=== PATIENT | female | born 1970 | race Caucasian/White ===

== ENCOUNTER 2016-11-07 08:27 | Inpatient (IN) ==
[2016-11-05 17:26] LABS: Basophils # (Auto) 0 K/mcL (0.0-0.3); Basophils % (Auto) 0.3 % (0.0-2.0); Eosinophils # (Auto) 0.3 K/mcL (0.0-0.7); Eosinophils % (Auto) 2.4 % (0.0-7.0); Granulocytes % (Auto) 68.2 % (38.0-78.0); Lymphocytes # (Auto) 2.8 K/mcL (1.5-4.8); Lymphocytes % (Auto) 24.1 % (15.5-49.0); Mean Cell Volume 88.9 fL (80.0-100.0); Mean Corpuscular HGB Conc 32.3 g/dL (31.0-36.0); Mean Corpuscular Hemoglobin 28.7 pg (26.0-34.0); Monocytes # (Auto) 0.6 K/mcL (0.1-0.9); Platelet Count 364 K/mcL (140-440); RBC 4.89 M/mcL (4.00-5.20); Red Cell Distribution Width 13.3 % (11.5-14.5)
[2016-11-05 17:36] LABS: Blood Urea Nitrogen 20 mg/dl (6-20)
[2016-11-05 19:10] LABS: Appearance,Urine HAZY; Bilirubin,Urine NEG (NEG); Color,Urine YELLOW; Glucose,Urine (UA) NEGATIVE (NEG); Leukocyte Esterase,Urine NEG /uL (NEG); Nitrate,Urine NEG (NEG); Protein,Urine NEG (NEG); Specific Gravity,Urine 1.024 (1.000-1.035); Urine Blood NEG mg/dL (<0.03); Urobilinogen,Urine NEG (NEG)
[~2016-11-07 08:27] MED LIST: ACETAMINOPHEN 500 MG TABLET PO SCH; CELECOXIB 200 MG CAPSULE PO SCH; PREGABALIN 150 MG CAPSULE PO SCH; ceFAZolin 1 GM VIAL IV SCH; oxyCODONE 10 MG TAB.ER.12H PO SCH
[2016-11-07] MEDS ORDERED: KETOROLAC 30 MG, ROPIVACAINE HCL/PF 49.5 ML, EPINEPHrine 0.5 MG, 0.9 % SODIUM CHLORIDE ... IJ ONE (11:00)
[2016-11-07] MEDS ORDERED: fentaNYL 100 MCG/2 ML VIAL IV ONE (11:15)
[2016-11-07] MEDS ORDERED: PROPOFOL 200 MG/20 ML VIAL IV ONE (11:15)
[2016-11-07] MEDS ORDERED: LIDOCAINE HCL/PF 100 MG/5 ML SYRINGE IV ONE (11:15)
[2016-11-07] MEDS ORDERED: DEXAMETHASONE 10 MG/ML VIAL IV ONE (11:15)
[2016-11-07] MEDS ORDERED: MIDAZOLAM 5 MG/5 ML VIAL IV ONE (11:15)
[2016-11-07] MEDS ORDERED: TRANEXAMIC ACID 1,000 MG/10 ML VIAL IV ONE ×2 (11:15→14:26)
[2016-11-07] MEDS ORDERED: ONDANSETRON 4 MG/2 ML VIAL IV ONE (11:15)
[2016-11-07] MEDS ORDERED: GLYCOPYRROLATE 0.2 MG/ML VIAL IV ONE (11:15)
[2016-11-07] MEDS ORDERED: BUPIVACAINE 0.5% 50 ML VIAL IJ ONE (12:08)
[2016-11-07] MEDS ORDERED: ATROPINE SULFATE 0.4 MG/ML VIAL IV PRN (12:34)
[2016-11-07] MEDS ORDERED: FLUMAZENIL 0.1 MG/ML ML IV PRN (12:34)
[2016-11-07] MEDS ORDERED: MEPERIDINE 25 MG/ML SYRINGE IV PRN (12:34)
[2016-11-07] MEDS ORDERED: NALOXONE HCL 0.4 MG/ML VIAL IV PRN (12:34)
[2016-11-07] MEDS ORDERED: diphenhydrAMINE 50 MG/ML VIAL IV PRN (12:34)
[2016-11-07] MEDS ORDERED: METOPROLOL TARTRATE 5 MG/5 ML VIAL IV PRN (12:34)
[2016-11-07] MEDS ORDERED: BENZOCAINE/MENTHOL 1 LOZENGE PO PRN ×2 (12:34→14:26)
[2016-11-07] MEDS ORDERED: IPRATROPIUM/ALBUTEROL 3 ML AMPUL.NEB NEB PRN (12:34)
[2016-11-07] MEDS ORDERED: MEPERIDINE 50 MG/ML SYRINGE IM ONE (12:34)
[2016-11-07] MEDS ORDERED: ONDANSETRON 4 MG/2 ML VIAL IV PRN ×2 (12:34→14:26)
[2016-11-07] MEDS ORDERED: ePHEDrine 50 MG/ML AMPUL IV PRN (12:34)
[2016-11-07] MEDS ORDERED: PROMETHAZINE 25 MG/ML VIAL IM ONE (12:34)
[2016-11-07] MEDS ORDERED: PROMETHAZINE 25 MG/ML VIAL IV PRN (12:34)
[2016-11-07] MEDS ORDERED: METHOCARBAMOL 1,000 MG/10 ML VIAL IV PRN (12:34)
[2016-11-07] MEDS ORDERED: LACTATED RINGERS 1,000 ML IV SCH (12:45)
[2016-11-07] MEDS ORDERED: traMADol 50 MG TABLET PO PRN (12:58)
--- NOTE | 2016-11-07 13:00 | Brief Operative Note ---
Date of procedure: 11/07/16 Pre-op diagnosis: right knee djd 3 comp Post-op diagnosis: same Procedure: right tka Grafts/Implants: Yes Anesthesia: GETA Findings: right knee djd Complications: none Surgeon: James Contreras B And B Gang Worker: Gael Rose Estimated blood loss (cc): 20 Tourniquet Time (Minutes): 57 Specimens Removed/Pathology: none sent Condition: stable Disposition: PACU
[2016-11-07] MEDS: fentaNYL 100 MCG/2 ML VIAL IV PRN ×4 (13:14→13:25)
[2016-11-07] MEDS: HYDROmorphone 2 MG/ML SYRINGE IV PRN ×9 (13:30→18:06)
--- NOTE | 2016-11-07 13:51 | Operative Note ---
DATE OF OPERATION: 11/07/2016 PREOPERATIVE DIAGNOSIS: Right knee degenerative arthritis in all three compartments. POSTOPERATIVE DIAGNOSIS: Right knee degenerative arthritis in all three compartments. PROCEDURE: Right total knee arthroplasty using the ZAHEER robot. SURGEON: James Contreras MD PUTTY AND PATCH WORKER: Gael Rose PA-C ANESTHESIA: General LMA anesthesia. COMPLICATIONS: None. IMPLANTS: Cemented femur, cemented tibial baseplate with a 9 mm poly and 33 mm patellar button, all cemented components. ESTIMATED BLOOD LOSS: About 20 mL. DESCRIPTION OF PROCEDURE: The patient was brought to the operating room and put to sleep with general LMA anesthesia. Once asleep, the patient had the right leg sterilely prepped and draped in the usual sterile fashion. Once this was done, we confirmed this to be the operative site. The patient received preoperative antibiotics and tranexamic acid. We then placed two pins above and below the knee. We made our midline incision and placed the arrays, registered the center of hip rotation, and medial and lateral malleoli. Once done, we then performed exposure of the joint, placed intraarticular pins, registered the pins and then registered 30 points on the femur and tibia. Once completed, then retractors were placed. Prior to retractors being placed we did balance the knee through and extension at 15 degrees and at 90 degrees. Once these were recorded, we positioned the implants to balance the knee at 18 mm. This seemed to work very well. We did template both an 11 and a 9 insert. We then brought the robot in and the distal femoral cut was made, a posterior chamfer cut. We changed the blade and then made our anterior and posterior chamfer cuts and posterior and anterior cuts as well. The bony fragments were removed. We then brought the robot in and registered the arm once more and changed the blade and made our tibial cut. Once this was done, we removed the bony fragments, removed the remnants of the meniscus and removed osteophytes posteriorly. Once done, we then positioned the rotation of the tibial baseplate with the robot and the size per template. This was punched into place with the exact rotation and orientation that the robot had been pretemplated with. Once this was in place, we then placed the femur and trialed the 9 poly. This seemed to be very accurate with a negative 2 degrees of flexion contracture with about neutral alignment. It balanced both in flexion and extension very nicely, motion excellent. The patella tracked well. We then resurfaced the patella measuring 22 mm. This was cut to 14 mm and we placed a 33 mm patellar button. This was drilled into place and trialed. This tracked very well. All components were very stable, perfectly balanced. We irrigated thoroughly and cemented into place the above-mentioned sizes. Excess cement was removed and soft tissue injection was performed prior to inserting the implants. Once the implants were in we kept the knee at 45 degrees until the cement had dried, we deflated the tourniquet and controlled bleeding with the Bovie, reevaluated for any loose fragments or cement fragments and washed the knee once more with copious amounts of irrigation. The bone had been prepared prior to the implant with a CarboJet for deeper penetration of cement. We irrigated thoroughly and closed the mid vastus approach with #2 FiberWire and #2 double-armed Maxon. Skin was closed with 2-0 Vicryl and as an adhesive closure. The portals were closed. The pins were removed above and below the knee and these were closed with nylon stitches. The patient tolerated this well without complication. ALLEGRA:kaye Job ID: [id number] Doc ID: [id number] James Contreras MD
--- NOTE | 2016-11-07 14:00 | XRay Report ---
CLINICAL INFORMATION: Postsurgical follow-up TECHNIQUE: AP and lateral right knee COMPARISON: None. FINDINGS: Status post right total knee arthroplasty. Femoral and tibial complements are in anatomic positions. Soft tissue and intra-articular postsurgical gas IMPRESSION: Status post right total knee arthroplasty Interpreted and Authenticated by: Phill Mayberry 11/07/16
[2016-11-07] MEDS ORDERED: MAGNESIUM HYDROXIDE 30 ML ORAL.SUSP PO PRN (14:26)
[2016-11-07] MEDS ORDERED: BISACODYL 10 MG SUPP.RECT PR PRN (14:26)
[2016-11-07] MEDS ORDERED: ACETAMINOPHEN 325 MG TABLET PO PRN (14:26)
[2016-11-07] MEDS ORDERED: POLYETHYLENE GLYCOL 3350 17 GM PACKET PO PRN (14:26)
[2016-11-07] MEDS ORDERED: FLEETS ADULT ENEMA PR PRN (14:26)
[2016-11-07] MEDS: 0.45 % SODIUM CHLORIDE 1,000 ML IV SCH ×2 (15:04→23:32)
[2016-11-07] MEDS: FERROUS SULFATE 325 MG TABLET PO SCH (17:03)
[2016-11-07] MEDS: KETOROLAC 15 MG/ML VIAL IV SCH ×2 (17:17→23:18)
[2016-11-07] MEDS: ceFAZolin 1 GM VIAL IV SCH (19:10)
[2016-11-07] MEDS: DOCUSATE SODIUM 100 MG CAPSULE PO SCH (20:24)
[2016-11-07] MEDS: ASPIRIN 325 MG ENTERIC COATED TABLET PO SCH (20:24)
[2016-11-07] MEDS: 0.9 % SODIUM CHLORIDE 10 ML SYRINGE IV SCH (20:24)
[2016-11-07] MEDS ORDERED: DOCUSATE SODIUM 100 MG CAPSULE PO SCH (21:00)
[2016-11-07] MEDS ORDERED: SENNOSIDES 1 TABLET PO SCH (21:00)
[2016-11-07] MEDS ORDERED: TEMAZEPAM 15 MG CAPSULE PO PRN (21:00)
[2016-11-07] MEDS: HYDROcodone/APAP 10/325MG TABLET PO PRN ×2 (22:15→23:18)
[2016-11-08] MEDS: ceFAZolin 1 GM VIAL IV SCH (03:25)
[2016-11-08] MEDS: HYDROcodone/APAP 10/325MG TABLET PO PRN ×3 (03:25→11:11)
[2016-11-08] MEDS: 0.9 % SODIUM CHLORIDE 10 ML SYRINGE IV SCH ×3 (03:26→12:01)
[2016-11-08] MEDS: KETOROLAC 15 MG/ML VIAL IV SCH ×2 (06:00→12:01)
--- NOTE | 2016-11-08 06:56 | Orthopedic Progress Note ---
Subjective Patient information: Note initiated : 11/08/16 at 6:55 am Service Date, if different from initiated Date: [] Patient: Lima Hunt 46 y/o F admitted on 11/07/16 for Right Total Knee Arthroplasty. Chief Complaint: [minimal pain and tolerating regular diet] Objective Vital signs: Vital Signs Temp Pulse Resp BP BP Pulse Ox 11/08/16 06:34 98.8 F 16 120/72 97 11/08/16 03:23 98.1 F 64 12 119/62 94 11/08/16 00:00 98.0 F 73 12 134/82 96 11/07/16 20:00 98.5 F 88 12 129/84 98 11/07/16 16:22 97.9 F 59 L 16 144/89 96 11/07/16 15:57 139/75 96 11/07/16 15:48 135/87 100 11/07/16 15:25 130/84 98 11/07/16 15:10 142/76 91 11/07/16 14:40 97.1 F L 14 135/83 99 11/07/16 14:22 98.2 F 54 L 12 113/57 96 11/07/16 13:55 57 L 12 144/84 100 11/07/16 13:40 72 15 145/87 95 11/07/16 13:25 88 18 158/72 98 11/07/16 13:13 98.0 F 92 H 16 175/78 97 11/07/16 08:39 98.7 F 18 129/83 95 Intake and Output 11/07/16 11/08/16 11/08/16 21:59 05:59 13:59 Intake Total 300 / 300 1900 / 1900 400 / 400 Output Total 300 / 300 575 / 575 100 / 100 Balance 0 / 0 1325 / 1325 300 / 300 Intake: IV 150 / 150 1000 / 1000 Sodium Chloride 0.45% 1, 1000 / 1000 000 ml @ 125 mls/hr IV . Q8H TWYLA Rx#:[id number] Lactated Ringers 1,000 ml 150 / 150 @ 20 mls/hr IV .Q24H TWYLA Rx#:[id number] Oral 900 / 900 400 / 400 IV - Manual Only 150 / 150 Output: Void Amount 300 / 300 575 / 575 100 / 100 Other: # Voids 1 1 1 Weight 286 lb 8 oz Intake & Output: Intake & Output 11/07/16 11/08/16 11/08/16 21:59 05:59 13:59 Intake Total 300 / 300 1900 / 1900 400 / 400 Output Total 300 / 300 575 / 575 100 / 100 Balance 0 / 0 1325 / 1325 300 / 300 Weight 286 lb 8 oz Intake: IV 150 / 150 1000 / 1000 Sodium Chloride 0.45% 1, 1000 / 1000 000 ml @ 125 mls/hr IV . Q8H [facility]LA Rx#:[id number] Lactated Ringers 1,000 ml 150 / 150 @ 20 mls/hr IV .Q24H TWYLA Rx#:[id number] Oral 900 / 900 400 / 400 IV - Manual Only 150 / 150 Output: Void Amount 300 / 300 575 / 575 100 / 100 Other: # Voids 1 1 1 Incision: Yes healing Incision clean and dry: Yes Dressing: Yes clean Weight bearing status: full Neurological exam IM: Yes oriented X3, Yes neurovascular intact Extremities exam IM: Yes Foot pink and warm, Yes neurovascular intact - Labs CBC & BMP: 11/08/16 05:08 11/05/16 14:31 Labs: 11/08/16 11/05/16 05:08 14:31 Hgb 14.0 Hct 35.8 L 43.5
--- NOTE | 2016-11-08 07:00 | Discharge Summary ---
Ortho Discharge - TKA - Patient Instructions Diet: Regular Diet Activity: activity as tolerated, weight bearing as tolerated Total Knee Protocol: For Total Knee: Start ROM SWATHI with stationary bike or rocking chair. Work on gaining full extension of knee. Posterior dislocation precautions provided. Hip abductor strengthening and gait training instructions provided. Apply Cryocuff as instructed. Dressing Care: Aquacel Ag - leave on for 5 days - Follow Up Plan Follow Up Appointments: Gael Rose PA-C [[facility]] - 11/22/16 10:10 am Disposition: Home, Self-Care Prognosis: Good Rehab Potential: Good I certify that the patient requires SNF services: No Overall status at discharge: patient is progressing back to baseline - Orders For Discharge Additional Discharge Orders: Physical Therapy at Discharge - TKA Location: Determined By Patient Toilet Riser Discharge Order Location: Determined By Patient Walker Location: Determined By Patient
[2016-11-08] MEDS: FERROUS SULFATE 325 MG TABLET PO SCH (07:26)
[2016-11-08] MEDS ORDERED: THYROID, PORK 60 MG TABLET PO SCH (07:30)
[2016-11-08] MEDS: 0.45 % SODIUM CHLORIDE 1,000 ML IV SCH (07:30)
[2016-11-08] MEDS: ASPIRIN 325 MG ENTERIC COATED TABLET PO SCH (08:33)
[2016-11-08] MEDS: DOCUSATE SODIUM 100 MG CAPSULE PO SCH (08:33)
[2016-11-08] MEDS ORDERED: ASCORBIC ACID 500 MG TABLET PO SCH (09:00)
[2016-11-08] MEDS ORDERED: MULTIVIT,THER IRON,CA,FA & MIN 1 TABLET PO SCH (09:00)
== END 2016-11-08 14:50 | disposition home or self-care (01) | DRG 470 ==
LOC: MEDSUR 08:27
PROVIDERS: ADMIT Orthopaedic Surgery; ATTEND Orthopaedic Surgery